=== PATIENT | male | born 1960 | race Caucasian/White ===

== ENCOUNTER 2020-01-15 20:39 | Emergency (ER) | payer MEDICAID, OTHER ==
[~2020-01-15] VITALS: Ht 172.7 cm; Wt 90.9 kg
[2020-01-15] MEDS ORDERED: HCTZ25T PO (22:28)
[2020-01-15] MEDS ORDERED: metoprolol tartrate 50mg tablet PO ONE (22:30)
[2020-01-15 23:23] VITALS: BP 150/96
== END 2020-01-15 23:24 | disposition home or self-care (01) ==
LOC: ER 20:39
DX: I10 Essential (primary) hypertension (principal); E11.9 Type 2 diabetes mellitus without complications; Z79.899 Other long term (current) drug therapy
CPT/HCPCS: 93005; 99283

== ENCOUNTER 2022-06-12 08:45 | Emergency (ER) | payer MEDICAID, OTHER ==
[~2022-06-12] VITALS: Ht 172.7 cm; Wt 79.0 kg
[~2022-06-12 08:45] MED LIST: AMLO10TA13 PO; ATOR40TA72 PO; EMPA10TA PO; GLIM4TAB7 PO; LOP25T PO; OXYB5TAB16 PO; PIOG45TA65 PO
[2022-06-12] MEDS ORDERED: normal saline 1000ML IV soln IVB ONE (09:25)
[2022-06-12 09:51] LABS: BASOPHILS # (AUTO) 0.1 X10'3 (0-0.2); BASOPHILS % (AUTO) 0.6 % (0-1); EOSINOPHILS # (AUTO) 0.1 X10'3 (0-0.9); EOSINOPHILS % (AUTO) 0.4 % (0-6); HEMATOCRIT 27.7 % (42.0-52.0); HEMOGLOBIN 8.7 g/dl (14.0-17.9); LYMPHOCYTES # (AUTO) 0.6 X10'3 (1.1-4.8); MEAN CORPUSCULAR HEMOGLOBIN 28.6 PG (27.0-31.0); MEAN CORPUSCULAR HGB CONC 31.3 g/dL (33.0-36.5); MEAN CORPUSCULAR VOLUME 91.4 FL (78-98); MEAN PLATELET VOLUME 9.3 FL (7.4-10.4); MONOCYTES # (AUTO) 1.6 X10'3 (0-0.9); MONOCYTES % (AUTO) 11.1 % (2-12); NEUTROPHILS % (AUTO) 83.9 % (42-75); PLATELET COUNT 264 X10'3 (140-440); RED BLOOD COUNT 3.03 X10'6 (4.70-6.10); RED CELL DISTRIBUTION WIDTH 13.6 % (11.5-14.5); WHITE BLOOD COUNT 14.2 X10'3 (4.5-11.0)
[2022-06-12 11:22] LABS: ALANINE AMINOTRANSFERASE 15 U/L (12-78); ALBUMIN 3.2 G/DL (3.4-5.0); ALBUMIN/GLOBULIN RATIO 0.6 (1.1-1.5); ALKALINE PHOSPHATASE 90 IU/L (46-116); ASPARTATE AMINO TRANSFERASE 9 U/L (10-37); BILIRUBIN,TOTAL 0.4 MG/DL (0.1-1.0); BLOOD UREA NITROGEN 63 MG/DL (7-18); CALCIUM 8.8 MG/DL (8.5-10.1); POTASSIUM 4.5 MMOL/L (3.5-5.1); TOTAL PROTEIN 8.2 G/DL (6.4-8.2); eGFR 14 ML/MIN
[2022-06-12 11:24] LABS: CHLORIDE 95 MMOL/L (99-107)
[2022-06-12 11:48] LABS: GLUCOSE 735 MG/DL (70-104)
[2022-06-12 12:05] LABS: ANION GAP 13 (8-16); SODIUM 130 MMOL/L (135-145)
[2022-06-12] MEDS ORDERED: insulin regular, human 10 units/0.1 ml syringe IV ONE (13:30)
[2022-06-12] MEDS ORDERED: normal saline 1000ml 1,000 ML IV ONE ×2 (13:30→14:15)
[2022-06-12 14:36] VITALS: BP 151/84
[2022-06-12 14:47] LABS: CHLORIDE 103 MMOL/L (99-107); POTASSIUM 4.1 MMOL/L (3.5-5.1); SODIUM 135 MMOL/L (135-145)
[2022-06-12 14:48] LABS: ANION GAP 12 (8-16); BLOOD UREA NITROGEN 60 MG/DL (7-18); BUN/CREATININE RATIO 15.1 (5.4-32.0); CALCIUM 8.3 MG/DL (8.5-10.1); CREATININE 3.97 MG/DL (0.60-1.10); TOTAL CARBON DIOXIDE 19.8 MMOL/L (24-32); eGFR 15 ML/MIN
[2022-06-12 14:55] LABS: GLUCOSE 546 MG/DL (70-104)
[2022-06-12 15:07] LABS: CLARITY,URINE CLOUDY (Clear); COLOR,URINE YELLOW (Yellow); GLUCOSE, URINE >=1000 mg/dl (Neg); KETONES,URINE NEGATIVE (Neg); LEUKOCYTE ESTERASE ,URINE LARGE (Neg); NITRITES, URINE NEGATIVE (Neg); OCCULT BLOOD,URINE MODERATE (Neg); PROTEIN,URINE TRACE mg/dl (Neg); UROBILINOGEN,URINE 0.2 E.U/dL (0.2-1.0)
[2022-06-12 15:13] LABS: UA COLLECTION TYPE NON-SPECIFIED
[2022-06-12 15:14] LABS: WBC,URINE TNTC /HPF (0-4)
[2022-06-12 15:15] LABS: BACTERIA,URINE 1+ /HPF (Neg); MUCUS STRANDS NONE SEEN /LPF (Neg); RBC,URINE 0-2 /HPF (0-2); SQUAMOUS EPITHELIAL CELL,UR FEW /LPF (FEW)
== END 2022-06-12 15:51 | disposition home or self-care (01) ==
LOC: ER 08:45
DX: E11.65 Type 2 diabetes mellitus with hyperglycemia (principal); I10 Essential (primary) hypertension; Z79.899 Other long term (current) drug therapy; Z79.1 Long term (current) use of non-steroidal anti-inflammatories (NSAID)
CPT/HCPCS: 36415; 80048; 80053; 81001; 82948; 85025; 87088; 96361; 96374; 99283; J1815; J7030

== ENCOUNTER 2022-06-14 10:02 | Emergency (ER) | payer OTHER ==
[~2022-06-14] VITALS: Ht 172.7 cm; Wt 77.3 kg
[2022-06-14 10:15] VITALS: BP 146/78
[2022-06-14 11:41] LABS: BASOPHILS # (AUTO) 0.1 X10'3 (0-0.2); BASOPHILS % (AUTO) 0.6 % (0-1); EOSINOPHILS % (AUTO) 0.2 % (0-6); HEMATOCRIT 25.9 % (42.0-52.0); HEMOGLOBIN 8.2 g/dl (14.0-17.9); LYMPHOCYTES # (AUTO) 0.5 X10'3 (1.1-4.8); LYMPHOCYTES % (AUTO) 4.2 % (21-51); MEAN CORPUSCULAR HGB CONC 31.6 g/dL (33.0-36.5); MEAN CORPUSCULAR VOLUME 88.6 FL (78-98); MEAN PLATELET VOLUME 9.4 FL (7.4-10.4); MONOCYTES # (AUTO) 0.9 X10'3 (0-0.9); MONOCYTES % (AUTO) 7.8 % (2-12); NEUTROPHILS % (AUTO) 87.2 % (42-75); PLATELET COUNT 253 X10'3 (140-440); RED BLOOD COUNT 2.92 X10'6 (4.70-6.10); RED CELL DISTRIBUTION WIDTH 13.1 % (11.5-14.5); WHITE BLOOD COUNT 11.5 X10'3 (4.5-11.0)
[2022-06-14 11:58] LABS: ALANINE AMINOTRANSFERASE 21 U/L (12-78); ALBUMIN 2.8 G/DL (3.4-5.0); ALBUMIN/GLOBULIN RATIO 0.6 (1.1-1.5); ALKALINE PHOSPHATASE 110 IU/L (46-116); ANION GAP 15 (8-16); ASPARTATE AMINO TRANSFERASE 20 U/L (10-37); BILIRUBIN,TOTAL 0.4 MG/DL (0.1-1.0); BLOOD UREA NITROGEN 56 MG/DL (7-18); BUN/CREATININE RATIO 13.3 (5.4-32.0); CHLORIDE 98 MMOL/L (99-107); CREATININE 4.21 MG/DL (0.60-1.10); POTASSIUM 4.4 MMOL/L (3.5-5.1); SODIUM 132 MMOL/L (135-145); TOTAL CARBON DIOXIDE 19.2 MMOL/L (24-32); TOTAL PROTEIN 7.7 G/DL (6.4-8.2); eGFR 14 ML/MIN
[2022-06-14 12:00] LABS: GLUCOSE 519 MG/DL (70-104)
[2022-06-14] MEDS ORDERED: insulin glargine (Lantus) pen - multi-dose SQ ONE (12:10)
[2022-06-14] MEDS ORDERED: linagliptin 5mg tablet PO ONE (12:10)
[2022-06-14 12:22] LABS: HEMOGLOBIN A1C 11.2 % (4.5-6.2)
[2022-06-14] MEDS ORDERED: LINA5TAB4 PO (13:06)
== END 2022-06-14 13:35 | disposition home or self-care (01) ==
LOC: ER 10:03
DX: E11.65 Type 2 diabetes mellitus with hyperglycemia (principal); I12.9 Hypertensive chronic kidney disease with stage 1 through stage 4 chronic kidney disease, or unspecified chronic kidney disease; E11.22 Type 2 diabetes mellitus with diabetic chronic kidney disease; N18.4 Chronic kidney disease, stage 4 (severe); Z60.2 Problems related to living alone; Z79.899 Other long term (current) drug therapy
CPT/HCPCS: 80053; 82948; 83036; 85025; 96372; 99283; J1815

== ENCOUNTER 2022-11-25 09:13 | Emergency (ER) | payer MEDICAID ==
[~2022-11-25] VITALS: Ht 172.7 cm; Wt 57.0 kg
[~2022-11-25 09:13] MED LIST changes: +LINA5TAB4 PO
[2022-11-25 09:52] LABS: BASOPHILS # (AUTO) 0.1 X10'3 (0-0.2); BASOPHILS % (AUTO) 0.4 % (0-1); EOSINOPHILS % (AUTO) 0.2 % (0-6); HEMATOCRIT 23.4 % (42.0-52.0); HEMOGLOBIN 7.3 g/dl (14.0-17.9); LYMPHOCYTES # (AUTO) 0.8 X10'3 (1.1-4.8); MEAN CORPUSCULAR HEMOGLOBIN 25.9 PG (27.0-31.0); MEAN CORPUSCULAR HGB CONC 31.1 g/dL (33.0-36.5); MEAN CORPUSCULAR VOLUME 83.4 FL (78-98); MEAN PLATELET VOLUME 7.8 FL (7.4-10.4); MONOCYTES # (AUTO) 1.1 X10'3 (0-0.9); MONOCYTES % (AUTO) 8.3 % (2-12); NEUTROPHILS # (AUTO) 11.8 X10'3 (1.8-7.7); NEUTROPHILS % (AUTO) 85.1 % (42-75); PLATELET COUNT 426 X10'3 (140-440); RED BLOOD COUNT 2.81 X10'6 (4.70-6.10); RED CELL DISTRIBUTION WIDTH 15.3 % (11.5-14.5); WHITE BLOOD COUNT 13.8 X10'3 (4.5-11.0)
[2022-11-25 10:07] LABS: ALANINE AMINOTRANSFERASE 17 U/L (12-78); ALBUMIN 2.9 G/DL (3.4-5.0); ALBUMIN/GLOBULIN RATIO 0.4 (1.1-1.5); ALKALINE PHOSPHATASE 103 IU/L (46-116); ANION GAP 21 (8-16); ASPARTATE AMINO TRANSFERASE 6 U/L (10-37); BILIRUBIN,TOTAL 0.3 MG/DL (0.1-1.0); BLOOD UREA NITROGEN 141 MG/DL (7-18); BUN/CREATININE RATIO 17.6 (10.0-20.0); CHLORIDE 105 MMOL/L (99-107); CREATININE 8.02 MG/DL (0.60-1.10); GLUCOSE 229 MG/DL (70-104); LIPASE 166 U/L (73-393); POTASSIUM 5.2 MMOL/L (3.5-5.1); SODIUM 141 MMOL/L (135-145); TOTAL PROTEIN 9.4 G/DL (6.4-8.2); eGFR 7 ML/MIN
[2022-11-25 10:19] LABS: TOTAL CARBON DIOXIDE 14.9 MMOL/L (24-32)
[2022-11-25 10:20] LABS: CLARITY,URINE TURBID (Clear); COLOR,URINE STRAW (Yellow); UA COLLECTION TYPE CLN CATCH MIDSTREAM
[2022-11-25 10:21] LABS: WBC,URINE TNTC /HPF (0-4)
[2022-11-25 10:22] LABS: BACTERIA,URINE 4+ /HPF (Neg); RBC,URINE 0-2 /HPF (0-2); SQUAMOUS EPITHELIAL CELL,UR FEW /LPF (FEW); WBC CLUMPS,URINE MANY /HPF (NEGATIVE)
[2022-11-25] MEDS ORDERED: ondansetron/PF 4mg/2ml inj IV ONE (12:15)
[2022-11-25] MEDS ORDERED: normal saline 1000ML IV soln IVB ONE (12:40)
[2022-11-25] MEDS ORDERED: CefTRIAXone/D5W-Rocephin 1gm 50 ML IV ONE (12:40)
[2022-11-25] MEDS ORDERED: sodium bicarbonate 1meq/ml syr 150 ML in dextrose 5%-water 1,000 ML IV SCH ×2 (13:55→14:00)
[2022-11-25] MEDS ORDERED: sodium bicarbonate 1meq/ml syr 150 ML in dextrose 5%-water 1,000 ML IV ONE (13:56)
[2022-11-25 14:41] LABS: ABG BASE EXCESS -13.5 mmol/L (-2.0-2.0); ABG HCO3 12.5 mmol/L (22.0-26.0); ABG OXYGEN SATURATION 97.4 % (94-97); ABG PO2 (T) 111.8 mmHg (75.0-100.0); ALLEN'S TEST POSITIVE; FCOHb 0.3 % (0.0-3.9); FMetHb 0.2 % (0.0-1.5); FO2Hb 96.9 % (94-97); TOTAL HEMOGLOBIN 7.3 G/dl (14.0-17.9)
--- NOTE | 2022-11-25 18:49 | NUR ---
I called pharmacist about whats holding [facility]'s order verification, pharmacist said she has to get approval from the hospital's ID doctor before verification of the order. She said she will be the one to make that call and that Dr. Ying was aware Addendum: 11/26/22 at 0643 by GRIS Please disregard the above note, this was meant for another patient
[2022-11-25] MEDS ORDERED: LANTUS SQ (22:33)
[2022-11-25] MEDS ORDERED: FLO0.4C PO (22:33)
--- NOTE | 2022-11-26 06:45 | NUR ---
Dr. Riley was notified that patient UA yesterday was positive for UTI. He said he would write an order Addendum: 11/26/22 at 1323 by GRIS Patient received IV antibiotic yesterday
[2022-11-26 12:54] VITALS: BP 126/77
--- NOTE | 2022-11-26 13:23 | NUR ---
Hands off report given to the EMS
--- NOTE | 2022-11-26 13:36 | NUR ---
Report given to ASHISH Martinez at [facility]
== END 2022-11-26 13:39 | disposition short-term general hospital (02) ==
LOC: ER 09:13
DX: E11.65 Type 2 diabetes mellitus with hyperglycemia (principal); I12.0 Hypertensive chronic kidney disease with stage 5 chronic kidney disease or end stage renal disease; N18.4 Chronic kidney disease, stage 4 (severe); N17.9 Acute kidney failure, unspecified; E87.20 Acidosis, unspecified; D64.9 Anemia, unspecified
CPT/HCPCS: 36415; 36600; 71045; 80053; 81001; 82803; 82948; 83605; 83690; 84145; 85018; 85025; 87040; 87077; 87088; 87186; 93005; 96365; 96366; 96367; 96375; 99285; J0696; J2405; J3490; J7030; J7070